=== PATIENT | female | born 1955 ===

== ENCOUNTER 2021-09-22 13:52 | Inpatient (IN) | payer MEDICARE ==
[2021-09-23 10:00] LABS: Basophils # (Auto) 0.1 K/mm3 (0.0-0.1); Basophils % (Auto) 1.4 % (0.0-1.8); Eosinophils # (Auto) 0.1 K/mm3 (0.0-0.4); Eosinophils % (Auto) 0.6 % (0.0-4.3); Hematocrit 38.9 % (30.3-42.9); Hemoglobin 13.8 gm/dl (10.1-14.3); Lymphocytes # (Auto) 2.4 K/mm3 (1.2-5.4); Lymphocytes % (Auto) 22.9 % (13.4-35.0); Mean Corpuscular HGB Conc 36 % (30-34); Mean Corpuscular Volume 92 fl (79-97); Monocytes # (Auto) 0.9 K/mm3 (0.0-0.8); Monocytes % (Auto) 8.9 % (0.0-7.3); Platelet Count 213 K/mm3 (140-440); Red Blood Count 4.24 M/mm3 (3.65-5.03); Red Cell Distribution Width 13.9 % (13.2-15.2)
[2021-09-23 10:15] LABS: Alanine Aminotransferase 48 units/L (7-56); Albumin 4.5 g/dL (3.9-5); BUN/Creatinine Ratio 16; Blood Urea Nitrogen 13 mg/dL (7-17); Calcium 9.7 mg/dL (8.4-10.2); Chol/HDL Ratio 2.73 %; HDL Cholesterol 52 mg/dL (40-59); Hemolysis Index 4; LDL Cholesterol,Direct 77 mg/dL (50-130)
--- NOTE | 2021-09-23 10:16 | History and Physical Report ---
GP History & Physical - History of Present Illness Date of admission: 09/22/21 Date of Examination: 09/23/21 Reason for Admission: Danger to self, Failure of Outpatient Treatment, Severe anxiety/depression, Unable to care for self History of Present Illness: The patient was seen today. She is a 65y/o female patient who was admitted for bizarre behavior and decrease in cognitive behavior. The patient also had not been taking any medications. The patient appears anxious. The patient is a/o x 1 and is a poor historian. She tells me she's never seen a psychiatrist and doesn't have any psychiatric disorders initially. She later says she takes seroqul and xanax for bipolar and anxiety. The patient says she came here from [facility]. She denies any illicit drug use or alcohol. She says she stopped using nicotine a few weeks ago. The patient denies SI/HI or hallucinations of any kind. PAST PSYCHIATRIC HISTORY: Diagnoses: Bipolar, anxiety Suicide attempts or Self-harm behavior: Denies Prior psychiatric hospitalizations: Denies Substance Abuse history: nicotine Previous psychiatric medications tried: seroquel, xanax Outpatient treatment: Yes PAST MEDICAL HISTORY: None reported or document Family Psychiatric History: None reported or documented SOCIAL HISTORY Marital Status: Living Arrangements: Lives with roommate Employment Status: Disabled Access to guns/weapons: Denies Education: History of Abuse: Denies Legal History: Denies REVIEW OF SYSTEMS Constitutional: Negative for weight loss ENT: Negative for stridor Respiratory: Negative for cough or hemoptysis All other systems reviewed and are negative MENTAL STATUS EXAMINATION General Appearance and Behavior: Age appropriate, good hygiene, wearing appropriate clothes. Cooperation: cooperative Psychomotor Behavior: Psychomotor normal Mood: okay Affect and affective range: congruent with stated mood Thought Process: impaired Thought Content: None Speech: Normal volume, Regular rate and rhythm, Suicidal Ideation: Denies Homicidal Ideation: Denies Hallucinations: Denies Delusions: None Impulse Control: Limited Insight and Judgment: Limited Memory: limited Attention: Attentive Orientation: alert and oriented Assessment and Plan (1)Bipolar Disorder Treatment Plan Patient admitted for inpatient psychiatric evaluation, medication adjustment and close monitoring The patient's behavior, mood, sleep and appetite will be closely monitored. Patient enrolled in individual and group therapeutic sessions and encouraged to attend. Patient provided with a safe and structured environment. Patient's physical health needs will be addressed by the Hospitalist. Hospitalist Consulted Labs including CBC, CMP, Lipid profile and Hemoglobin A1C levels ordered for baseline reference Social Assessment will be completed and the [employer] will work with patient and family to ensure a suitable and safe disposition Medication adjustment will be made as clinically indicated Restarted home medications Usual Wellness Religious/Preservation: - Start Trazodone 50 mg po QHS & 50 mg po QHS PRN between 10 PM & 2 AM for insomnia - Start Melatonin 5 mg po QHS to promote circadian rhythm The patient agreed on the treatment plan, understood the risk, benefit, alternative treatment, potential consequence of no treatment, and gave informed consent. Estimated days: 7 Post hospital care: primary care provider, psychiatric provider Case staffed with Dr. Cruz Legal Status: Voluntary Reaction to Hospitalization: Accepting Medications and Allergies Allergies Allergy/AdvReac Type Severity Reaction Status Date / Time pollen extracts Allergy Unknown Verified 09/23/21 05:22 Home Medications Medication Instructions Recorded Confirmed Last Taken Type ARIPiprazole [Abilify] 10 mg PO DAILY 09/22/21 09/22/21 Unknown History atenoloL [Tenormin] 50 mg PO DAILY 09/22/21 09/22/21 Unknown History levETIRAcetam [Keppra TAB] 500 mg PO BID 09/22/21 09/22/21 Unknown History ALPRAZolam [Xanax TAB] 1 mg PO BID 09/23/21 09/23/21 Unknown History ARIPiprazole [Abilify TAB] 10 mg PO DAILY 09/23/21 09/23/21 Unknown History Cefdinir 1 mg PO Q12HR 09/23/21 09/23/21 Unknown History Melatonin 5 mg PO HS PRN MDD 1 tab 09/23/21 09/23/21 Unknown History Protonix TAB 40 mg PO DAILY 09/23/21 09/23/21 Unknown History diphenhydrAMINE 0.5 ampul IM BID PRN 09/23/21 09/23/21 Unknown History Results - Results Labs/Vitals: Laboratory Last Values WBC 10.6 K/mm3 (4.5-11.0) 09/23/21 09:27 RBC 4.24 M/mm3 (3.65-5.03) 09/23/21 09:27 Hgb 13.8 gm/dl (10.1-14.3) 09/23/21 09:27 Hct 38.9 % (30.3-42.9) 09/23/21 09: MCV 92 fl (79-97) 09/23/21 09: MCH 33 pg (28-32) H 09/23/21 09: MCHC 36 % (30-34) H 09/23/21 09: RDW 13.9 % (13.2-15.2) 09/23/21 09: Plt Count 213 K/mm3 (140-440) 09/23/21 09:27 Lymph % (Auto) 22.9 % (13.4-35.0) 09/23/21 09: [place] % (Auto) 8.9 % (0.0-7.3) H 09/23/21 09: Eos % (Auto) 0.6 % (0.0-4.3) 09/23/21 09: Baso % (Auto) 1.4 % (0.0-1.8) 09/23/21 09: Lymph # (Auto) 2.4 K/mm3 (1.2-5.4) 09/23/21 09:27 [place] # (Auto) 0.9 K/mm3 (0.0-0.8) H 09/23/21 09:27 Eos # (Auto) 0.1 K/mm3 (0.0-0.4) 09/23/21 09:27 Baso # (Auto) 0.1 K/mm3 (0.0-0.1) 09/23/21 09: Seg Neutrophils % 66.2 % (40.0-70.0) 09/23/21 09: Seg Neutrophils # 7.1 K/mm3 (1.8-7.7) 09/23/21 09:27 Sodium 131 mmol/L (137-145) L 09/23/21 09:27 Potassium 4.2 mmol/L (3.6-5.0) 09/23/21 09:27 Chloride 93.4 mmol/L (98-107) L 09/23/21 09:27 Carbon Dioxide 23 mmol/L (22-30) 09/23/21 09:27 Anion Gap 19 mmol/L 09/23/21 09:27 BUN 13 mg/dL (7-17) 11/06/21 09:27 Creatinine 0.8 mg/dL (0.6-1.2) 09/23/21 09:27 Estimated GFR > 60 ml/min 09/23/21 09:27 BUN/Creatinine Ratio 16 % 09/23/21 09:27 Glucose 172 mg/dL (65-100) H 09/23/21 09:27 Hemoglobin A1c 5.2 % (4-6) 09/23/21 09:27 Calcium 9.7 mg/dL (8.4-10.2) 09/23/21 09:27 Total Bilirubin 0.70 mg/dL (0.1-1.2) 09/23/21 09:27 AST 61 units/L (5-40) H 09/23/21 09:27 ALT 48 units/L (7-56) 09/23/21 09:27 Alkaline Phosphatase 69 units/L (35-129) 09/23/21 09:27 Total Protein 8.2 g/dL (6.3-8.2) 09/23/21 09:27 Albumin 4.5 g/dL (3.9-5) 09/23/21 09:27 Albumin/Globulin Ratio 1.2 % 09/23/21 09:27 Triglycerides 66 mg/dL (2-149) 09/23/21 09:27 Cholesterol 142 mg/dL (50-199) 09/23/21 09:27 LDL Cholesterol Direct 77 mg/dL (50-130) 09/23/21 09:27 HDL Cholesterol 52 mg/dL (40-59) 09/23/21 09:27 Cholesterol/HDL Ratio 2.73 % 09/23/21 09:27 Last Vital Signs Temp 99.0 F 09/22/21 22:47 Pulse 78 09/22/21 22:47 Resp 18 09/22/21 22:47 BP 125/60 09/22/21 22:47 Pulse Ox 96 09/22/21 22:47 Physical Examination - Constitutional Vitals: Vital Signs Temp Pulse Resp BP Pulse Ox 99.0 F 78 18 125/60 96 09/22/21 22:47 09/22/21 22:47 09/22/21 22:47 09/22/21 22:47 09/22/21 22:47 Temperature -Last 24 Hours Temperature 99.0 F Mental Status Exam - Vital signs Last Vital Signs Temp 99.0 F 09/22/21 22:47 Pulse 78 09/22/21 22:47 Resp 18 09/22/21 22:47 BP 125/60 09/22/21 22:47 Pulse Ox 96 09/22/21 22:47 Physician Certification - Certification Statement Physician Certification Statement: This is an acknowledgement statement that KARLI PAGE is a 65 year old F who requires inpatient psychiatric admission for treatment which could reasonably be expected to improve the patient's condition for Estimated period of time patient will need to remain in the hospital: [ ] Plan for post-hospital care: [ ]
[2021-09-23] MEDS ORDERED: NON-FORMULARY EACH (Melatonin 5 MG) PO PRN (10:22)
[2021-09-23] MEDS ORDERED: DIPHENHYDRAMINE IM PRN (10:22)
[2021-09-23] MEDS ORDERED: PROTONIX 40 MG PO SCH (10:30)
[2021-09-23] MEDS ORDERED: NON-FORMULARY EACH (Cefdinir [Cefdinir] 300 MG Capsule) PO SCH (10:30)
[2021-09-23] MEDS ORDERED: NON-FORMULARY EACH (Alprazolam [Xanax Tab] 2 MG Tablet) PO SCH (10:30)
[2021-09-23] MEDS ORDERED: MELATONIN 5 MG TAB PO PRN (10:44)
--- NOTE | 2021-09-23 10:53 | Consultation ---
Medications and Allergies Allergies Allergy/AdvReac Type Severity Reaction Status Date / Time pollen extracts Allergy Unknown Verified 09/23/21 05:22 Home Medications Medication Instructions Recorded Confirmed Last Taken Type ARIPiprazole [Abilify] 10 mg PO DAILY 09/22/21 09/22/21 Unknown History atenoloL [Tenormin] 50 mg PO DAILY 09/22/21 09/22/21 Unknown History levETIRAcetam [Keppra TAB] 500 mg PO BID 09/22/21 09/22/21 Unknown History ALPRAZolam [Xanax TAB] 1 mg PO BID 09/23/21 09/23/21 Unknown History ARIPiprazole [Abilify TAB] 10 mg PO DAILY 09/23/21 09/23/21 Unknown History Cefdinir 1 mg PO Q12HR 09/23/21 09/23/21 Unknown History Melatonin 5 mg PO HS PRN MDD 1 tab 09/23/21 09/23/21 Unknown History Protonix TAB 40 mg PO DAILY 09/23/21 09/23/21 Unknown History diphenhydrAMINE 0.5 ampul IM BID PRN 09/23/21 09/23/21 Unknown History Active Meds: Active Medications Alprazolam (Alprazolam 1 Mg Tab) [address] [facility] Aripiprazole (Aripiprazole 10 Mg Tab) [address] [facility] Atenolol (Atenolol 50 Mg Tab) [address] [facility] Levetiracetam (Levetiracetam 500 Mg Tab) [address] [facility] Melatonin (Melatonin 5 Mg Tab) 5 mg PO HS PRN PRN Reason: Insomnia Miscellaneous Medication (Diphenhydramine) 0.5 ampul IM BID PRN PRN Reason: Agitation Miscellaneous Medication (Cefdinir [Cefdinir]) [address] [facility] Pantoprazole Sodium (Pantoprazole 40 Mg Tab) [address] [facility] Exam - Constitutional Vitals: Temp Pulse Resp BP Pulse Ox 99.0 F 78 18 125/60 96 09/22/21 22:47 09/22/21 22:47 09/22/21 22:47 09/22/21 22:47 09/22/21 22:47 Results - Labs CBC & Chem 7: 09/23/21 09:27 09/23/21 09:27 Labs: Abnormal lab results 09/23/21 09/23/21 Range/Units 09:27 09:27 MCH 33 H (28-32) pg MCHC 36 H (30-34) % [place] % (Auto) 8.9 H (0.0-7.3) % [place] # (Auto) 0.9 H (0.0-0.8) K/mm3 Sodium 131 L (137-145) mmol/L Chloride 93.4 L (98-107) mmol/L Glucose 172 H (65-100) mg/dL AST 61 H (5-40) units/L
[2021-09-23] MEDS: ARIPiprazole 10 MG TAB PO SCH (12:23)
[2021-09-23] MEDS: PANTOPRAZOLE 40 MG TAB PO SCH (12:23)
[2021-09-23] MEDS: ALPRAZolam 1 MG TAB PO SCH ×2 (12:23→21:00)
[2021-09-23] MEDS: levETIRAcetam 500 MG TAB PO SCH ×2 (12:23→21:00)
[2021-09-23] MEDS: atenoloL 50 MG TAB PO SCH (20:13)
[2021-09-24] MEDS: levETIRAcetam 500 MG TAB PO SCH ×2 (09:42→21:22)
[2021-09-24] MEDS: ALPRAZolam 1 MG TAB PO SCH ×2 (09:42→21:22)
[2021-09-24] MEDS: atenoloL 50 MG TAB PO SCH (09:42)
[2021-09-24] MEDS: PANTOPRAZOLE 40 MG TAB PO SCH (09:42)
[2021-09-24] MEDS ORDERED: ARIPiprazole 10 MG TAB PO SCH (10:00)
[2021-09-24] MEDS: ARIPiprazole 10 MG TAB PO SCH (10:23)
--- NOTE | 2021-09-24 11:43 | Progress Note ---
Subjective Date of service: 09/24/21 Principal diagnosis: Bipolar Disorder Subjective Comment: The patient was seen today. She says it's been a tough morning because she did not sleep. The patient says "I have insomnia." She denies SI/HI or hallucinations of any kind. Nursing note states the patient was hiding medications in cup. REVIEW OF SYSTEMS Constitutional: Negative for weight loss ENT: Negative for stridor Respiratory: Negative for cough or hemoptysis All other systems reviewed and are negative MENTAL STATUS EXAMINATION General Appearance and Behavior: Age appropriate, good hygiene, wearing appropriate clothes. Cooperation: cooperative Psychomotor Behavior: Psychomotor normal Mood: okay Affect and affective range: congruent with stated mood Thought Process: impaired Thought Content: None Speech: Normal volume, Regular rate and rhythm, Suicidal Ideation: Denies Homicidal Ideation: Denies Hallucinations: Denies Delusions: None Impulse Control: Limited Insight and Judgment: Limited Memory: limited Attention: Attentive Orientation: alert and oriented Assessment and Plan (1)Bipolar Disorder Treatment Plan Patient admitted for inpatient psychiatric evaluation, medication adjustment and close monitoring The patient's behavior, mood, sleep and appetite will be closely monitored. Patient enrolled in individual and group therapeutic sessions and encouraged to attend. Patient provided with a safe and structured environment. Patient's physical health needs will be addressed by the Hospitalist. Hospitalist Consulted Labs including CBC, CMP, Lipid profile and Hemoglobin A1C levels ordered for baseline reference Social Assessment will be completed and the [employer] will work with patient and family to ensure a suitable and safe disposition Medication adjustment will be made as clinically indicated Increased Trazodone 50mg po qhs Usual Wellness Baptism/Preservation: - Start Trazodone 50 mg po QHS & 50 mg po QHS PRN between 10 PM & 2 AM for insomnia - Start Melatonin 5 mg po QHS to promote circadian rhythm The patient agreed on the treatment plan, understood the risk, benefit, alternative treatment, potential consequence of no treatment, and gave informed consent. Estimated days: 7 Post hospital care: primary care provider, psychiatric provider Case staffed with Dr. Cruz Medications and Allergies Allergies Allergy/AdvReac Type Severity Reaction Status Date / Time pollen extracts Allergy Unknown Verified 09/23/21 05:22 Home Medications Medication Instructions Recorded Confirmed Last Taken Type ARIPiprazole [Abilify] 10 mg PO DAILY 09/22/21 09/22/21 Unknown History atenoloL [Tenormin] 50 mg PO DAILY 09/22/21 09/22/21 Unknown History levETIRAcetam [Keppra TAB] 500 mg PO BID 09/22/21 09/22/21 Unknown History ALPRAZolam [Xanax TAB] 1 mg PO BID 09/23/21 09/23/21 Unknown History ARIPiprazole [Abilify TAB] 10 mg PO DAILY 09/23/21 09/23/21 Unknown History Cefdinir 1 cap PO Q12HR 09/23/21 09/23/21 Unknown History Melatonin 5 mg PO HS PRN MDD 1 tab 09/23/21 09/23/21 Unknown History Protonix TAB 40 mg PO DAILY 09/23/21 09/23/21 Unknown History diphenhydrAMINE 0.5 ampul IM BID PRN 09/23/21 09/23/21 Unknown History Active Meds: Active Medications Alprazolam (Alprazolam 1 Mg Tab) 2 mg PO BID [facility] Last Admin: 09/24/21 09:42 Dose: 2 mg Documented by: Aripiprazole (Aripiprazole 10 Mg Tab) 10 mg PO DAILY [facility] Last Admin: 09/24/21 10:23 Dose: 10 mg Documented by: Atenolol (Atenolol 50 Mg Tab) 50 mg PO DAILY [facility] Last Admin: 09/24/21 09:42 Dose: 50 mg Documented by: Levetiracetam (Levetiracetam 500 Mg Tab) 500 mg PO BID [facility] Last Admin: 09/24/21 09:42 Dose: 500 mg Documented by: Melatonin (Melatonin 5 Mg Tab) 5 mg PO HS PRN PRN Reason: Insomnia Miscellaneous Medication (Cefdinir [Cefdinir]) 1 mg PO Q12HR [facility] Pantoprazole Sodium (Pantoprazole 40 Mg Tab) 40 mg PO DAILY [facility] Last Admin: 09/24/21 09:42 Dose: 40 mg Documented by: Results - Results Labs/Vitals: Laboratory Last Values WBC 10.6 K/mm3 (4.5-11.0) 09/23/21 09:27 RBC 4.24 M/mm3 (3.65-5.03) 09/23/21 09:27 Hgb 13.8 gm/dl (10.1-14.3) 09/23/21 09:27 Hct 38.9 % (30.3-42.9) 09/23/21 09: MCV 92 fl (79-97) 09/23/21 09: MCH 33 pg (28-32) H 09/23/21 09: MCHC 36 % (30-34) H 09/23/21 09: RDW 13.9 % (13.2-15.2) 09/23/21 09: Plt Count 213 K/mm3 (140-440) 09/23/21 09: Lymph % (Auto) 22.9 % (13.4-35.0) 09/23/21 09: [place] % (Auto) 8.9 % (0.0-7.3) H 09/23/21 09: Eos % (Auto) 0.6 % (0.0-4.3) 09/23/21 09: Baso % (Auto) 1.4 % (0.0-1.8) 09/23/21 09: Lymph # (Auto) 2.4 K/mm3 (1.2-5.4) 09/23/21 09: [place] # (Auto) 0.9 K/mm3 (0.0-0.8) H 09/23/21 09: Eos # (Auto) 0.1 K/mm3 (0.0-0.4) 09/23/21 09: Baso # (Auto) 0.1 K/mm3 (0.0-0.1) 09/23/21 09: Seg Neutrophils % 66.2 % (40.0-70.0) 09/23/21 09: Seg Neutrophils # 7.1 K/mm3 (1.8-7.7) 09/23/21 09:27 Sodium 131 mmol/L (137-145) L 09/23/21 09: Potassium 4.2 mmol/L (3.6-5.0) 09/23/21 09: Chloride 93.4 mmol/L (98-107) L 09/23/21 09: Carbon Dioxide 23 mmol/L (22-30) 09/23/21 09: Anion Gap 19 mmol/L 09/23/21 09: BUN 13 mg/dL (7-17) 09/23/21 09: Creatinine 0.8 mg/dL (0.6-1.2) 09/23/21 09: Estimated GFR > 60 ml/min 09/23/21 09: BUN/Creatinine Ratio 16 % 09/23/21 09: Glucose 172 mg/dL (65-100) H 09/23/21 09:27 Hemoglobin A1c 5.2 % (4-6) 09/23/21 09: Calcium 9.7 mg/dL (8.4-10.2) 09/23/21 09: Total Bilirubin 0.70 mg/dL (0.1-1.2) 09/23/21: AST 61 units/L (5-40) H 09/23/21: ALT 48 units/L (7-56) 09/23/21: Alkaline Phosphatase 69 units/L (35-129) 09/23/21 09: Total Protein 8.2 g/dL (6.3-8.2) 09/23/21: Albumin 4.5 g/dL (3.9-5) 09/23/21 09: Albumin/Globulin Ratio 1.2 % 09/23/21 09:27 Triglycerides 66 mg/dL (2-149) 09/23/21 09: Cholesterol 142 mg/dL (50-199) 09/23/21 09: LDL Cholesterol Direct 77 mg/dL (50-130) 09/23/21 09: HDL Cholesterol 52 mg/dL (40-59) 09/23/21 09: Cholesterol/HDL Ratio 2.73 % 09/23/21 09: TSH 1.940 mlU/mL (0.270-4.200) 09/23/21 09:27 Last Vital Signs Temp 98.5 F 09/24/21 08:30 Pulse 92 H 09/24/21 09:42 Resp 16 09/24/21 08:30 BP 121/65 09/24/21 09:42 Pulse Ox 97 09/24/21 08:30
[2021-09-24] MEDS ORDERED: CEFDINIR 300 MG PO SCH (12:05)
[2021-09-24] MEDS ORDERED: ACETAMINOPHEN 325 MG TAB PO PRN (13:18)
--- NOTE | 2021-09-24 13:23 | Consultation ---
History of Present Illness - Reason for Consult Consult date: 09/24/21 Medical management - History of Present Illness Patient is a 62-year-old female with past medical history of hypertension, GERD, tension headaches, and bilateral knee osteoarthritis who presented with "bizarre behavior" requiring psychiatric evaluation at [facility]. The patient endorses being calm and "being levelheaded". Patient is quite pleasant and very conversant when asked questions. The patient endorses being treated with cefdinir for UTI, and completing the antibiotic course. Internal medicine was consulted for medical management of nonpsychiatric conditions. Past History Past Medical History: arthritis (Bilateral kneesosteoarthritis), GERD, hypertension, other (Tension headache; constipation) Past Surgical History: Other (Surgical resection of left ovarian cyst) Social history: other (Lives with friends) Family history: cancer (Colon cancermother) Medications and Allergies Allergies Allergy/AdvReac Type Severity Reaction Status Date / Time pollen extracts Allergy Unknown Verified 09/23/21 05:22 Home Medications Medication Instructions Recorded Confirmed Last Taken Type ARIPiprazole [Abilify] 10 mg PO DAILY 09/22/21 09/22/21 Unknown History atenoloL [Tenormin] 50 mg PO DAILY 09/22/21 09/22/21 Unknown History levETIRAcetam [Keppra TAB] 500 mg PO BID 09/22/21 09/22/21 Unknown History ALPRAZolam [Xanax TAB] 1 mg PO BID 09/23/21 09/23/21 Unknown History ARIPiprazole [Abilify TAB] 10 mg PO DAILY 09/23/21 09/23/21 Unknown History Cefdinir 1 cap PO Q12HR 09/23/21 09/23/21 Unknown History Melatonin 5 mg PO HS PRN MDD 1 tab 09/23/21 09/23/21 Unknown History Protonix TAB 40 mg PO DAILY 09/23/21 09/23/21 Unknown History diphenhydrAMINE 0.5 ampul IM BID PRN 09/23/21 09/23/21 Unknown History Active Meds: Active Medications Alprazolam (Alprazolam 1 Mg Tab) 2 mg PO BID [facility] Last Admin: 09/24/21 09:42 Dose: 2 mg Documented by: Aripiprazole (Aripiprazole 10 Mg Tab) 10 mg PO DAILY [facility] Last Admin: 09/24/21 10:23 Dose: 10 mg Documented by: Levetiracetam (Levetiracetam 500 Mg Tab) 500 mg PO BID [facility] Last Admin: 09/24/21 09:42 Dose: 500 mg Documented by: Melatonin (Melatonin 5 Mg Tab) 5 mg PO HS PRN PRN Reason: Insomnia Pantoprazole Sodium (Pantoprazole 40 Mg Tab) 40 mg PO DAILY [facility] Last Admin: 09/24/21 09:42 Dose: 40 mg Documented by: Trazodone HCl (Trazodone 50 Mg Tab) 50 mg PO QHS [facility] Review of Systems All systems: negative Gastrointestinal: constipation, heartburn Exam - Constitutional Vitals: Temp Pulse Resp BP Pulse Ox 98.5 F 92 H 16 121/65 97 09/24/21 08:30 09/24/21 09:42 09/24/21 08:30 09/24/21 09:42 09/24/21 08:30 General appearance: Present: no acute distress, well-nourished - EENT Eyes: Present: PERRL, EOM intact ENT: hearing intact, clear oral mucosa, dentition normal - Neck Neck: Present: supple, normal ROM - Respiratory Respiratory effort: normal Respiratory: bilateral: diminished - Cardiovascular Rhythm: regular Heart Sounds: Present: S1 & S2 - Extremities Extremities: no ischemia, pulses intact, pulses symmetrical, normal temperature, normal color Extremity abnormal: edema (Trace bilateral edema to [place]) Peripheral Pulses: within normal limits - Abdominal General gastrointestinal: Present: soft, non-tender, non-distended, normal bowel sounds Female genitourinary: Present: deferred - Rectal Rectal Exam: deferred - Integumentary Integumentary: Present: clear, warm, dry - Musculoskeletal Musculoskeletal: strength equal bilaterally - Psychiatric Psychiatric: appropriate mood/affect, intact judgment & insight, memory intact, cooperative - Neurologic Neurologic: CNII-XII intact, moves all extremities - Allied Health Allied health notes reviewed: nursing Results - Labs CBC & Chem 7: 09/23/21 09:27 09/23/21 09:27 Assessment and Plan Patient is a 62-year-old female with past medical history of hypertension, GERD, tension headaches, and bilateral knee osteoarthritis who presented with "bizarre behavior" requiring psychiatric evaluation at [facility]. Internal medicine was consulted for medical management. #Bipolar disorder #Bizarre behavior -Management per primary #Hypertension -Discontinuing atenolol 50 mg daily. Starting amlodipine 5 mg daily. -Continue to monitor #UTI/cystitis -Patient endorses completing antibiotic course prior to hospitalization. Discontinuing cefdinir. -Low threshold for ordering urinalysis if patient becomes febrile, tachycardic, or patient expresses dysuria or frequency. #GERD -Continue p.o. Protonix 40 mg daily. Continue to monitor. #Constipation -Starting MiraLAX daily. #Hyperglycemia -Hemoglobin A1c 5.2 -Blood glucose goal [id number] while inpatient. Continue to monitor. Thank you for this interesting consult. We will continue to follow.
[2021-09-24] MEDS: POLYETHYLENE GLYCOL 3350 17 GM POWDER PO SCH (16:30)
[2021-09-24] MEDS: traZODone 50 MG TAB PO SCH (21:22)
[2021-09-25] MEDS: PANTOPRAZOLE 40 MG TAB PO SCH (09:22)
[2021-09-25] MEDS: ARIPiprazole 10 MG TAB PO SCH (09:22)
[2021-09-25] MEDS: ALPRAZolam 1 MG TAB PO SCH ×2 (09:22→21:11)
[2021-09-25] MEDS: amLODIPine 5 MG TAB PO SCH (09:22)
[2021-09-25] MEDS: levETIRAcetam 500 MG TAB PO SCH ×2 (09:22→21:10)
--- NOTE | 2021-09-25 10:30 | Progress Note ---
Subjective Date of service: 09/25/21 Principal diagnosis: Bipolar Disorder Subjective Comment: The patient was seen today. She says she is doing fine. She says "not yet" when asking was she SI/HI. She then laughs. The patient also denies hallucinations of any kind. But staff states she has been responding to internal stimuli and walking around holding her hair up in one spot. REVIEW OF SYSTEMS Constitutional: Negative for weight loss ENT: Negative for stridor Respiratory: Negative for cough or hemoptysis All other systems reviewed and are negative MENTAL STATUS EXAMINATION General Appearance and Behavior: Age appropriate, good hygiene, wearing appropriate clothes. Cooperation: cooperative Psychomotor Behavior: Psychomotor normal Mood: okay Affect and affective range: congruent with stated mood Thought Process: impaired Thought Content: None Speech: Normal volume, Regular rate and rhythm, Suicidal Ideation: Denies Homicidal Ideation: Denies Hallucinations: Denies Delusions: None Impulse Control: Limited Insight and Judgment: Limited Memory: limited Attention: Attentive Orientation: alert and oriented Assessment and Plan (1)Bipolar Disorder Treatment Plan Patient admitted for inpatient psychiatric evaluation, medication adjustment and close monitoring The patient's behavior, mood, sleep and appetite will be closely monitored. Patient enrolled in individual and group therapeutic sessions and encouraged to attend. Patient provided with a safe and structured environment. Patient's physical health needs will be addressed by the Hospitalist. Hospitalist Consulted Labs including CBC, CMP, Lipid profile and Hemoglobin A1C levels ordered for baseline reference Social Assessment will be completed and the Animal Caretaker Supervisor will work with patient and family to ensure a suitable and safe disposition Medication adjustment will be made as clinically indicated Increase Abilify 15mg po daily Usual Wellness Sikhism/Preservation: - Start Trazodone 50 mg po QHS & 50 mg po QHS PRN between 10 PM & 2 AM for insomnia - Start Melatonin 5 mg po QHS to promote circadian rhythm The patient agreed on the treatment plan, understood the risk, benefit, alternative treatment, potential consequence of no treatment, and gave informed consent. Estimated days: 7 Post hospital care: primary care provider, psychiatric provider Case staffed with Dr. Cruz Medications and Allergies Allergies Allergy/AdvReac Type Severity Reaction Status Date / Time pollen extracts Allergy Unknown Verified 09/23/21 05:22 Home Medications Medication Instructions Recorded Confirmed Last Taken Type ARIPiprazole [Abilify] 10 mg PO DAILY 09/22/21 09/22/21 Unknown History atenoloL [Tenormin] 50 mg PO DAILY 09/22/21 09/22/21 Unknown History levETIRAcetam [Keppra TAB] 500 mg PO BID 09/22/21 09/22/21 Unknown History ALPRAZolam [Xanax TAB] 1 mg PO BID 09/23/21 09/23/21 Unknown History ARIPiprazole [Abilify TAB] 10 mg PO DAILY 09/23/21 09/23/21 Unknown History Cefdinir 1 cap PO Q12HR 09/23/21 09/23/21 Unknown History Melatonin 5 mg PO HS PRN MDD 1 tab 09/23/21 09/23/21 Unknown History Protonix TAB 40 mg PO DAILY 09/23/21 09/23/21 Unknown History diphenhydrAMINE 0.5 ampul IM BID PRN 09/23/21 09/23/21 Unknown History Active Meds: Active Medications Acetaminophen (Acetaminophen 325 Mg Tab) 650 mg PO Q6H PRN PRN Reason: Headache Alprazolam (Alprazolam 1 Mg Tab) 2 mg PO BID [facility] Last Admin: 09/25/21 09:22 Dose: 2 mg Documented by: Amlodipine Besylate (Amlodipine 5 Mg Tab) 5 mg PO QDAY [facility] Last Admin: 09/25/21 09:22 Dose: 5 mg Documented by: Aripiprazole (Aripiprazole 10 Mg Tab) 10 mg PO DAILY [facility] Last Admin: 09/25/21 09:22 Dose: 10 mg Documented by: Levetiracetam (Levetiracetam 500 Mg Tab) 500 mg PO BID [facility] Last Admin: 09/25/21 09:22 Dose: 500 mg Documented by: Melatonin (Melatonin 5 Mg Tab) 5 mg PO HS PRN PRN Reason: Insomnia Last Admin: 09/24/21 20:56 Dose: 5 mg Documented by: Pantoprazole Sodium (Pantoprazole 40 Mg Tab) 40 mg PO DAILY [facility] Last Admin: 09/25/21 09:22 Dose: 40 mg Documented by: Polyethylene Glycol (Polyethylene Glycol 3350 17 Gm Powder) 17 gm PO QDAY [facility] Last Admin: 09/24/21 16:30 Dose: 17 gm Documented by: Trazodone HCl (Trazodone 50 Mg Tab) 50 mg PO QHS [facility] Last Admin: 09/24/21 21:22 Dose: 50 mg Documented by: Results - Results Labs/Vitals: Laboratory Last Values WBC 10.6 K/mm3 (4.5-11.0) 09/23/21 09: RBC 4.24 M/mm3 (3.65-5.03) 09/23/21 09: Hgb 13.8 gm/dl (10.1-14.3) 09/23/21: Hct 38.9 % (30.3-42.9) 09/23/21: MCV 92 fl (79-97) 09/23/21: MCH 33 pg (28-32) H 09/23/21: MCHC 36 % (30-34) H 09/23/21: RDW 13.9 % (13.2-15.2) 09/23/21: Plt Count 213 K/mm3 (140-440) 09/23/21 09: Lymph % (Auto) 22.9 % (13.4-35.0) 09/23/21: [place] % (Auto) 8.9 % (0.0-7.3) H 09/23/21: Eos % (Auto) 0.6 % (0.0-4.3) 09/23/21: Baso % (Auto) 1.4 % (0.0-1.8) 09/23/21: Lymph # (Auto) 2.4 K/mm3 (1.2-5.4) 09/23/21: [place] # (Auto) 0.9 K/mm3 (0.0-0.8) H 09/23/21: Eos # (Auto) 0.1 K/mm3 (0.0-0.4) 09/23/21: Baso # (Auto) 0.1 K/mm3 (0.0-0.1) 09/23/21: Seg Neutrophils % 66.2 % (40.0-70.0) 09/23/21: Seg Neutrophils # 7.1 K/mm3 (1.8-7.7) 09/23/21 09: Sodium 131 mmol/L (137-145) L 09/23/21:27 Potassium 4.2 mmol/L (3.6-5.0) 09/23/21 09: Chloride 93.4 mmol/L (98-107) L 09/23/21 09: Carbon Dioxide 23 mmol/L (22-30) 09/23/21 09: Anion Gap 19 mmol/L 09/23/21 09:27 BUN 13 mg/dL (7-17) 09/23/21 09: Creatinine 0.8 mg/dL (0.6-1.2) 09/23/21 09: Estimated GFR > 60 ml/min 09/23/21: BUN/Creatinine Ratio 16 % 09/23/21: Glucose 172 mg/dL (65-100) H 09/23/21 09: Hemoglobin A1c 5.2 % (4-6) 09/23/21 09: Calcium 9.7 mg/dL (8.4-10.2) 09/23/21 09: Total Bilirubin 0.70 mg/dL (0.1-1.2) 09/23/21 09: AST 61 units/L (5-40) H 09/23/21: ALT 48 units/L (7-56) 09/23/21 09: Alkaline Phosphatase 69 units/L (35-129) 09/23/21 09: Total Protein 8.2 g/dL (6.3-8.2) 09/23/21 09: Albumin 4.5 g/dL (3.9-5) 09/23/21 09: Albumin/Globulin Ratio 1.2 % 09/23/21 09: Triglycerides 66 mg/dL (2-149) 09/23/21 09: Cholesterol 142 mg/dL (50-199) 09/23/21 09: LDL Cholesterol Direct 77 mg/dL (50-130) 09/23/21: HDL Cholesterol 52 mg/dL (40-59) 09/23/21 09: Cholesterol/HDL Ratio 2.73 % 09/23/21 09: TSH 1.940 mlU/mL (0.270-4.200) 09/23/21 09:27 Last Vital Signs Temp 98.9 F 09/25/21 09:20 Pulse 77 09/25/21 09:22 Resp 18 09/25/21 09:20 BP 123/63 09/25/21 09:22 Pulse Ox 98 09/25/21 09:20
[2021-09-25] MEDS ORDERED: ARIPiprazole 5 MG TAB PO ONE (12:00)
--- NOTE | 2021-09-25 14:08 | Progress Note ---
Assessment and Plan Assessment and plan: Patient is a 62-year-old female with past medical history of hypertension, GERD, tension headaches, and bilateral knee osteoarthritis who presented with "bizarre behavior" requiring psychiatric evaluation at [facility]. Internal medicine was consulted for medical management. #Bipolar disorder #Bizarre behavior -Management per primary #Hypertension -Continue amlodipine 5 mg daily. -Continue to monitor #UTI/cystitis -Patient endorses completing antibiotic course prior to hospitalization. Discontinuing cefdinir. -Low threshold for ordering urinalysis if patient becomes febrile, tachycardic, or patient expresses dysuria or frequency. #GERD -Continue p.o. Protonix 40 mg daily. Continue to monitor. #Constipation -Continue MiraLAX daily. #Hyperglycemia -Hemoglobin A1c 5.2 -Blood glucose goal [id number] while inpatient. Continue to monitor. #Advanced care planning -Disease education conducted, care plan discussed, diagnoses discussed, prognosis discussed, and patient acknowledges understanding with care plan -Time: +15 minutes Will continue to follow. Disposition Plan: Continue medical management Total Time Spent with Patient (Minutes): 30 minutes History Interval history: No acute events over night. The patient denies fevers, chills, nausea, vomiting, abdominal pain, chest pain/pressure, shortness of breath, urinary symptoms, weakness, or confusion. Hospitalist Physical - Constitutional Vitals: Temp Pulse Resp BP Pulse Ox 98.9 F 77 18 123/63 98 09/25/21 09:20 09/25/21 09:22 09/25/21 09:20 09/25/21 09:22 09/25/21 09:20 General appearance: Present: no acute distress, well-nourished - EENT Eyes: Present: PERRL, EOM intact ENT: hearing intact, clear oral mucosa, dentition normal - Neck Neck: Present: supple, normal ROM - Respiratory Respiratory effort: normal Respiratory: bilateral: CTA - Cardiovascular Rhythm: regular Heart Sounds: Present: S1 & S2 - Extremities Extremities: no ischemia, pulses intact, pulses symmetrical, normal temperature, normal color Peripheral Pulses: within normal limits - Abdominal General gastrointestinal: soft, non-tender, non-distended, normal bowel sounds - Integumentary Integumentary: Present: clear, warm, dry - Psychiatric Psychiatric: appropriate mood/affect, intact judgment & insight, memory intact, cooperative - Neurologic Neurologic: CNII-XII intact - Allied Health Allied health notes reviewed: nursing Results - Labs CBC & Chem 7: 09/23/21 09:27 09/23/21 09: Labs: Laboratory Last Values WBC 10.6 K/mm3 (4.5-11.0) 09/23/21 09: RBC 4.24 M/mm3 (3.65-5.03) 09/23/21 09: Hgb 13.8 gm/dl (10.1-14.3) 09/23/21: Hct 38.9 % (30.3-42.9) 09/23/21: MCV 92 fl (79-97) 09/23/21: MCH 33 pg (28-32) H 09/23/21: MCHC 36 % (30-34) H 09/23/21: RDW 13.9 % (13.2-15.2) 09/23/21: Plt Count 213 K/mm3 (140-440) 09/23/21 09: Lymph % (Auto) 22.9 % (13.4-35.0) 09/23/21 09: [place] % (Auto) 8.9 % (0.0-7.3) H 09/23/21 09: Eos % (Auto) 0.6 % (0.0-4.3) 09/23/21 09: Baso % (Auto) 1.4 % (0.0-1.8) 09/23/21: Lymph # (Auto) 2.4 K/mm3 (1.2-5.4) 09/23/21: [place] # (Auto) 0.9 K/mm3 (0.0-0.8) H 09/23/21 09: Eos # (Auto) 0.1 K/mm3 (0.0-0.4) 09/23/21: Baso # (Auto) 0.1 K/mm3 (0.0-0.1) 09/23/21 09: Seg Neutrophils % 66.2 % (40.0-70.0) 09/23/21 09: Seg Neutrophils # 7.1 K/mm3 (1.8-7.7) 09/23/21 09: Sodium 131 mmol/L (137-145) L 09/23/21 09: Potassium 4.2 mmol/L (3.6-5.0) 09/23/21 09: Chloride 93.4 mmol/L (98-107) L 09/23/21 09: Carbon Dioxide 23 mmol/L (22-30) 09/23/21 09: Anion Gap 19 mmol/L 09/23/21: BUN 13 mg/dL (7-17) 09/23/21 09: Creatinine 0.8 mg/dL (0.6-1.2) 09/23/21 09: Estimated GFR > 60 ml/min 09/23/21: BUN/Creatinine Ratio 16 % 09/23/21: Glucose 172 mg/dL (65-100) H 09/23/21 09: Hemoglobin A1c 5.2 % (4-6) 09/23/21: Calcium 9.7 mg/dL (8.4-10.2) 09/23/21 09: Total Bilirubin 0.70 mg/dL (0.1-1.2) 09/23/21 09: AST 61 units/L (5-40) H 09/23/21: ALT 48 units/L (7-56) 09/23/21: Alkaline Phosphatase 69 units/L (35-129) 09/23/21 09: Total Protein 8.2 g/dL (6.3-8.2) 09/23/21: Albumin 4.5 g/dL (3.9-5) 09/23/21: Albumin/Globulin Ratio 1.2 % 09/23/21 09: Triglycerides 66 mg/dL (2-149) 09/23/21 09: Cholesterol 142 mg/dL (50-199) 09/23/21 09: LDL Cholesterol Direct 77 mg/dL (50-130) 09/23/21: HDL Cholesterol 52 mg/dL (40-59) 09/23/21: Cholesterol/HDL Ratio 2.73 % 09/23/21 09: TSH 1.940 mlU/mL (0.270-4.200) 09/23/21 09: Ruiz/IV: Voiding Method Toilet Active Medications - Current Medications Current Medications: Generic Name Dose Route Start Last Admin Trade Name Freq PRN Reason Stop Dose Admin Acetaminophen 650 mg 09/24/21 13:18 Acetaminophen 325 Mg Tab PO Q6H PRN Headache Alprazolam 2 mg 09/23/21 11:00 09/25/21 09:22 Alprazolam 1 Mg Tab PO 2 mg BID AMARIS Administration Amlodipine Besylate 5 mg 09/25/21 10:00 09/25/21 09:22 Amlodipine 5 Mg Tab PO 5 mg QDAY AMARIS Administration Aripiprazole 15 mg 09/26/21 10:00 Aripiprazole 15 Mg Tab PO QDAY AMARIS Levetiracetam 500 mg 09/23/21 11:00 09/25/21 09:22 Levetiracetam 500 Mg Tab PO 500 mg BID AMARIS Administration Melatonin 5 mg 09/23/21 10:44 09/24/21 20:56 Melatonin 5 Mg Tab PO 5 mg HS PRN Administration Insomnia Pantoprazole Sodium 40 mg 09/23/21 11:00 09/25/21 09:22 Pantoprazole 40 Mg Tab PO 40 mg DAILY AMARIS Administration Polyethylene Glycol 17 gm 09/24/21 15:00 09/24/21 16:30 Polyethylene Glycol 3350 17 Gm Powder PO 17 gm QDAY AMARIS Administration Trazodone HCl 50 mg 09/24/21 22:00 09/24/21 21:22 Trazodone 50 Mg Tab PO 50 mg QHS AMARIS Administration
[2021-09-25] MEDS: POLYETHYLENE GLYCOL 3350 17 GM POWDER PO SCH (16:22)
[2021-09-25] MEDS: traZODone 50 MG TAB PO SCH (21:10)
[2021-09-26] MEDS: ALPRAZolam 1 MG TAB PO SCH ×2 (09:30→21:20)
[2021-09-26] MEDS: amLODIPine 5 MG TAB PO SCH (09:34)
[2021-09-26] MEDS: POLYETHYLENE GLYCOL 3350 17 GM POWDER PO SCH (09:34)
[2021-09-26] MEDS: ARIPiprazole 15 MG TAB PO SCH (09:34)
[2021-09-26] MEDS: levETIRAcetam 500 MG TAB PO SCH ×2 (09:34→21:20)
[2021-09-26] MEDS: PANTOPRAZOLE 40 MG TAB PO SCH (09:34)
--- NOTE | 2021-09-26 09:43 | Progress Note ---
Subjective Date of service: 09/26/21 Principal diagnosis: Bipolar Disorder Subjective Comment: The patient was seen today. She is sitting in the dayroom, calm, and cooperative. She says she's doing fine. She denies SI/HI or hallucinations of any kind. Staff does report that the patient needs redirection, appears confused at times and at times appears to be responding to internal stimuli. REVIEW OF SYSTEMS Constitutional: Negative for weight loss ENT: Negative for stridor Respiratory: Negative for cough or hemoptysis All other systems reviewed and are negative MENTAL STATUS EXAMINATION General Appearance and Behavior: Age appropriate, good hygiene, wearing appropriate clothes. Cooperation: cooperative Psychomotor Behavior: Psychomotor normal Mood: okay Affect and affective range: congruent with stated mood Thought Process: impaired Thought Content: None Speech: Normal volume, Regular rate and rhythm, Suicidal Ideation: Denies Homicidal Ideation: Denies Hallucinations: Denies Delusions: None Impulse Control: Limited Insight and Judgment: Limited Memory: limited Attention: Attentive Orientation: alert and oriented Assessment and Plan (1)Bipolar Disorder Treatment Plan Patient admitted for inpatient psychiatric evaluation, medication adjustment and close monitoring The patient's behavior, mood, sleep and appetite will be closely monitored. Patient enrolled in individual and group therapeutic sessions and encouraged to attend. Patient provided with a safe and structured environment. Patient's physical health needs will be addressed by the Hospitalist. Hospitalist Consulted Labs including CBC, CMP, Lipid profile and Hemoglobin A1C levels ordered for baseline reference Social Assessment will be completed and the Park Ranger will work with patient and family to ensure a suitable and safe disposition Medication adjustment will be made as clinically indicated Increase Abilify 15mg po daily yesterday No changes made today Usual Wellness Moravian/Preservation: - Start Trazodone 50 mg po QHS & 50 mg po QHS PRN between 10 PM & 2 AM for insomnia - Start Melatonin 5 mg po QHS to promote circadian rhythm The patient agreed on the treatment plan, understood the risk, benefit, alternative treatment, potential consequence of no treatment, and gave informed consent. Estimated days: 7 Post hospital care: primary care provider, psychiatric provider Case staffed with Dr. Cruz Medications and Allergies Allergies Allergy/AdvReac Type Severity Reaction Status Date / Time pollen extracts Allergy Unknown Verified 09/23/21 05:22 Home Medications Medication Instructions Recorded Confirmed Last Taken Type ARIPiprazole [Abilify] 10 mg PO DAILY 09/22/21 09/22/21 Unknown History atenoloL [Tenormin] 50 mg PO DAILY 09/22/21 09/22/21 Unknown History levETIRAcetam [Keppra TAB] 500 mg PO BID 09/22/21 09/22/21 Unknown History ALPRAZolam [Xanax TAB] 1 mg PO BID 09/23/21 09/23/21 Unknown History ARIPiprazole [Abilify TAB] 10 mg PO DAILY 09/23/21 09/23/21 Unknown History Cefdinir 1 cap PO Q12HR 09/23/21 09/23/21 Unknown History Melatonin 5 mg PO HS PRN MDD 1 tab 09/23/21 09/23/21 Unknown History Protonix TAB 40 mg PO DAILY 09/23/21 09/23/21 Unknown History diphenhydrAMINE 0.5 ampul IM BID PRN 09/23/21 09/23/21 Unknown History Active Meds: Active Medications Acetaminophen (Acetaminophen 325 Mg Tab) 650 mg PO Q6H PRN PRN Reason: Headache Alprazolam (Alprazolam 1 Mg Tab) 2 mg PO BID [facility] Last Admin: 09/26/21 09:30 Dose: 2 mg Documented by: Amlodipine Besylate (Amlodipine 5 Mg Tab) 5 mg PO QDAY [facility] Last Admin: 09/26/21 09:34 Dose: 5 mg Documented by: Aripiprazole (Aripiprazole 15 Mg Tab) 15 mg PO QDAY [facility] Last Admin: 09/26/21 09:34 Dose: 15 mg Documented by: Levetiracetam (Levetiracetam 500 Mg Tab) 500 mg PO BID [facility] Last Admin: 09/26/21 09:34 Dose: 500 mg Documented by: Melatonin (Melatonin 5 Mg Tab) 5 mg PO HS PRN PRN Reason: Insomnia Last Admin: 09/24/21 20:56 Dose: 5 mg Documented by: Pantoprazole Sodium (Pantoprazole 40 Mg Tab) 40 mg PO DAILY [facility] Last Admin: 09/26/21 09:34 Dose: 40 mg Documented by: Polyethylene Glycol (Polyethylene Glycol 3350 17 Gm Powder) 17 gm PO QDAY [facility] Last Admin: 09/26/21 09:34 Dose: 17 gm Documented by: Trazodone HCl (Trazodone 50 Mg Tab) 50 mg PO QHS [facility] Last Admin: 09/25/21 21:10 Dose: 50 mg Documented by: Results - Results Labs/Vitals: Laboratory Last Values WBC 10.6 K/mm3 (4.5-11.0) 09/23/21 09: RBC 4.24 M/mm3 (3.65-5.03) 09/23/21 09: Hgb 13.8 gm/dl (10.1-14.3) 09/23/21 09: Hct 38.9 % (30.3-42.9) 09/23/21 09: MCV 92 fl (79-97) 09/23/21 09: MCH 33 pg (28-32) H 09/23/21 09: MCHC 36 % (30-34) H 09/23/21: RDW 13.9 % (13.2-15.2) 09/23/21 09: Plt Count 213 K/mm3 (140-440) 09/23/21 09: Lymph % (Auto) 22.9 % (13.4-35.0) 09/23/21 09: [place] % (Auto) 8.9 % (0.0-7.3) H 09/23/21 09: Eos % (Auto) 0.6 % (0.0-4.3) 09/23/21: Baso % (Auto) 1.4 % (0.0-1.8) 09/23/21 09: Lymph # (Auto) 2.4 K/mm3 (1.2-5.4) 09/23/21 09: [place] # (Auto) 0.9 K/mm3 (0.0-0.8) H 09/23/21 09:27 Eos # (Auto) 0.1 K/mm3 (0.0-0.4) 09/23/21 09: Baso # (Auto) 0.1 K/mm3 (0.0-0.1) 09/23/21 09: Seg Neutrophils % 66.2 % (40.0-70.0) 09/23/21 09: Seg Neutrophils # 7.1 K/mm3 (1.8-7.7) 09/23/21 09: Sodium 131 mmol/L (137-145) L 09/23/21 09:27 Potassium 4.2 mmol/L (3.6-5.0) 09/23/21 09:27 Chloride 93.4 mmol/L (98-107) L 09/23/21 09:27 Carbon Dioxide 23 mmol/L (22-30) 09/23/21 09:27 Anion Gap 19 mmol/L 09/23/21 09:27 BUN 13 mg/dL (7-17) 09/23/21 09:27 Creatinine 0.8 mg/dL (0.6-1.2) 09/23/21 09:27 Estimated GFR > 60 ml/min 09/23/21 09:27 BUN/Creatinine Ratio 16 % 09/23/21 09:27 Glucose 172 mg/dL (65-100) H 09/23/21 09:27 Hemoglobin A1c 5.2 % (4-6) 09/23/21 09:27 Calcium 9.7 mg/dL (8.4-10.2) 09/23/21 09:27 Total Bilirubin 0.70 mg/dL (0.1-1.2) 09/23/21 09:27 AST 61 units/L (5-40) H 09/23/21 09:27 ALT 48 units/L (7-56) 09/23/21 09:27 Alkaline Phosphatase 69 units/L (35-129) 09/23/21 09:27 Total Protein 8.2 g/dL (6.3-8.2) 09/23/21 09:27 Albumin 4.5 g/dL (3.9-5) 09/23/21 09:27 Albumin/Globulin Ratio 1.2 % 09/23/21 09:27 Triglycerides 66 mg/dL (2-149) 09/23/21 09:27 Cholesterol 142 mg/dL (50-199) 09/23/21 09:27 LDL Cholesterol Direct 77 mg/dL (50-130) 09/23/21 09:27 HDL Cholesterol 52 mg/dL (40-59) 09/23/21 09:27 Cholesterol/HDL Ratio 2.73 % 09/23/21 09:27 TSH 1.940 mlU/mL (0.270-4.200) 09/23/21 09:27 Last Vital Signs Temp 98.5 F 09/26/21 07:32 Pulse 74 09/26/21 09:34 Resp 16 09/26/21 07:32 BP 117/66 09/26/21 09:34 Pulse Ox 97 09/26/21 07:32
--- NOTE | 2021-09-26 10:43 | Progress Note ---
Hospitalist Physical - Constitutional Vitals: Temp Pulse Resp BP Pulse Ox 98.5 F 74 16 117/66 97 09/26/21 07:32 09/26/21 09:34 09/26/21 07:32 09/26/21 09:34 09/26/21 07:32 General appearance: Present: no acute distress, well-nourished Results - Labs CBC & Chem 7: 09/23/21 09:27 09/23/21 09:27 Labs: Laboratory Last Values WBC 10.6 K/mm3 (4.5-11.0) 09/23/21 09: RBC 4.24 M/mm3 (3.65-5.03) 09/23/21 09: Hgb 13.8 gm/dl (10.1-14.3) 09/23/21 09: Hct 38.9 % (30.3-42.9) 09/23/21 09: MCV 92 fl (79-97) 09/23/21 09: MCH 33 pg (28-32) H 09/23/21 09: MCHC 36 % (30-34) H 09/23/21 09:27 RDW 13.9 % (13.2-15.2) 09/23/21 09:27 Plt Count 213 K/mm3 (140-440) 09/23/21 09:27 Lymph % (Auto) 22.9 % (13.4-35.0) 09/23/21 09:27 [place] % (Auto) 8.9 % (0.0-7.3) H 09/23/21 09: Eos % (Auto) 0.6 % (0.0-4.3) 09/23/21 09:27 Baso % (Auto) 1.4 % (0.0-1.8) 09/23/21 09:27 Lymph # (Auto) 2.4 K/mm3 (1.2-5.4) 09/23/21 09:27 [place] # (Auto) 0.9 K/mm3 (0.0-0.8) H 09/23/21 09:27 Eos # (Auto) 0.1 K/mm3 (0.0-0.4) 09/23/21 09:27 Baso # (Auto) 0.1 K/mm3 (0.0-0.1) 09/23/21 09: Seg Neutrophils % 66.2 % (40.0-70.0) 09/23/21 09: Seg Neutrophils # 7.1 K/mm3 (1.8-7.7) 09/23/21 09: Sodium 131 mmol/L (137-145) L 09/23/21 09: Potassium 4.2 mmol/L (3.6-5.0) 09/23/21: Chloride 93.4 mmol/L (98-107) L 09/23/21 09: Carbon Dioxide 23 mmol/L (22-30) 09/23/21: Anion Gap 19 mmol/L 09/23/21: BUN 13 mg/dL (7-17) 09/23/21 09: Creatinine 0.8 mg/dL (0.6-1.2) 09/23/21 09: Estimated GFR > 60 ml/min 09/23/21: BUN/Creatinine Ratio 16 % 09/23/21: Glucose 172 mg/dL (65-100) H 09/23/21 09: Hemoglobin A1c 5.2 % (4-6) 09/23/21: Calcium 9.7 mg/dL (8.4-10.2) 09/23/21: Total Bilirubin 0.70 mg/dL (0.1-1.2) 09/23/21: AST 61 units/L (5-40) H 09/23/21: ALT 48 units/L (7-56) 09/23/21: Alkaline Phosphatase 69 units/L (35-129) 09/23/21 09: Total Protein 8.2 g/dL (6.3-8.2) 09/23/21: Albumin 4.5 g/dL (3.9-5) 09/23/21: Albumin/Globulin Ratio 1.2 % 09/23/21: Triglycerides 66 mg/dL (2-149) 09/23/21: Cholesterol 142 mg/dL (50-199) 09/23/21 09: LDL Cholesterol Direct 77 mg/dL (50-130) 09/23/21 09: HDL Cholesterol 52 mg/dL (40-59) 09/23/21 09:27 Cholesterol/HDL Ratio 2.73 % 09/23/21 09:27 TSH 1.940 mlU/mL (0.270-4.200) 09/23/21 09:27 Ruiz/IV: Voiding Method Toilet Active Medications - Current Medications Current Medications: Generic Name Dose Route Start Last Admin Trade Name Freq PRN Reason Stop Dose Admin Acetaminophen 650 mg 09/24/21 13:18 Acetaminophen 325 Mg Tab PO Q6H PRN Headache Alprazolam 2 mg 09/23/21 11:00 09/26/21 09:30 Alprazolam 1 Mg Tab PO 2 mg BID AMARIS Administration Amlodipine Besylate 5 mg 09/25/21 10:00 09/26/21 09:34 Amlodipine 5 Mg Tab PO 5 mg QDAY AMARIS Administration Aripiprazole 15 mg 09/26/21 10:00 09/26/21 09:34 Aripiprazole 15 Mg Tab PO 15 mg QDAY AMARIS Administration Levetiracetam 500 mg 09/23/21 11:00 09/26/21 09:34 Levetiracetam 500 Mg Tab PO 500 mg BID AMARIS Administration Melatonin 5 mg 09/23/21 10:44 09/24/21 20:56 Melatonin 5 Mg Tab PO 5 mg HS PRN Administration Insomnia Pantoprazole Sodium 40 mg 09/23/21 11:00 09/26/21 09:34 Pantoprazole 40 Mg Tab PO 40 mg DAILY AMARIS Administration Polyethylene Glycol 17 gm 09/24/21 15:00 09/26/21 09:34 Polyethylene Glycol 3350 17 Gm Powder PO 17 gm QDAY AMARIS Administration Trazodone HCl 50 mg 09/24/21 22:00 09/25/21 21:10 Trazodone 50 Mg Tab PO 50 mg QHS AMARIS Administration
[2021-09-26] MEDS: traZODone 50 MG TAB PO SCH (21:20)
[2021-09-27] MEDS: PANTOPRAZOLE 40 MG TAB PO SCH (10:25)
[2021-09-27] MEDS: levETIRAcetam 500 MG TAB PO SCH (10:25)
[2021-09-27] MEDS: ALPRAZolam 1 MG TAB PO SCH (10:25)
[2021-09-27] MEDS: amLODIPine 5 MG TAB PO SCH (10:26)
[2021-09-27] MEDS: POLYETHYLENE GLYCOL 3350 17 GM POWDER PO SCH (10:27)
[2021-09-27] MEDS: ARIPiprazole 15 MG TAB PO SCH (10:27)
[2021-09-27 10:29] VITALS: BP 141/109
--- NOTE | 2021-09-27 12:57 | Discharge Summary ---
Providers - Providers Date of Admission: 09/22/21 23:54 Date of discharge: 09/27/21 Attending physician: NIKKIE ARCHER MD 09/22/21 16:17 Consult to Physician [CONS] Routine Comment: Consulting Provider: SHIRLEY GONZALEZ Physician Instructions: Reason For Exam: manage medical conditions Primary care physician: DRAW [employer]ESS OPERATOR Hospitalization Reason for admission: psychosis Admitting Diagnosis: F31.9 - BIPOLAR DISORDER, UNSPECIFIED Condition: Stable Hospital course: The patient was provided inpatient psychiatric treatment with safe and supportive care, medication adjustment, adverse effect monitoring, medical evaluations, medical treatments, assessment and psycho-education. The patient's mood, cognition, behavior, moral support are improved and stabilized. St the time of discharge, the patient had no endangering behavior and no debilitating adverse effects. The patient agreed on potential consequences of no treatment and gave informed consent. 09/27 The patient was seen today. She is smiling and pleasant. She states she feels better. She is a little confused. She denies SI/HI. She also denies hallucinations. She says "I did yesterday but not today." Disposition: 01 HOME / SELF CARE / HOMELESS Time spent for discharge: 35 Allergies/Adverse Reactions: Allergies pollen extracts Allergy (Verified 09/23/21 05:22) Unknown Vital Signs: Last Vital Signs Temp 98.7 F 09/26/21 19:33 Pulse 115 H 09/27/21 10:26 Resp 18 09/26/21 19:33 BP 141/109 09/27/21 10:26 Pulse Ox 96 09/26/21 19:33 Last Lab: Laboratory Last Values WBC 10.6 K/mm3 (4.5-11.0) 09/23/21 09:27 RBC 4.24 M/mm3 (3.65-5.03) 09/23/21 09:27 Hgb 13.8 gm/dl (10.1-14.3) 09/23/21 09:27 Hct 38.9 % (30.3-42.9) 09/23/21 09:27 MCV 92 fl (79-97) 09/23/21 09:27 MCH 33 pg (28-32) H 09/23/21 09:27 MCHC 36 % (30-34) H 09/23/21 09:27 RDW 13.9 % (13.2-15.2) 09/23/21 09:27 Plt Count 213 K/mm3 (140-440) 09/23/21 09:27 Lymph % (Auto) 22.9 % (13.4-35.0) 09/23/21 09:27 Grimes % (Auto) 8.9 % (0.0-7.3) H 09/23/21 09:27 Eos % (Auto) 0.6 % (0.0-4.3) 09/23/21 09: Baso % (Auto) 1.4 % (0.0-1.8) 09/23/21 09:27 Lymph # (Auto) 2.4 K/mm3 (1.2-5.4) 09/23/21 09: Grimes # (Auto) 0.9 K/mm3 (0.0-0.8) H 09/23/21 09:27 Eos # (Auto) 0.1 K/mm3 (0.0-0.4) 09/23/21 09: Baso # (Auto) 0.1 K/mm3 (0.0-0.1) 09/23/21 09:27 Seg Neutrophils % 66.2 % (40.0-70.0) 09/23/21 09: Seg Neutrophils # 7.1 K/mm3 (1.8-7.7) 09/23/21 09:27 Sodium 131 mmol/L (137-145) L 09/23/21 09:27 Potassium 4.2 mmol/L (3.6-5.0) 09/23/21 09: Chloride 93.4 mmol/L (98-107) L 09/23/21 09: Carbon Dioxide 23 mmol/L (22-30) 09/23/21 09: Anion Gap 19 mmol/L 09/23/21 09:27 BUN 13 mg/dL (7-17) 09/23/21 09: Creatinine 0.8 mg/dL (0.6-1.2) 09/23/21 09:27 Estimated GFR > 60 ml/min 09/23/21 09: BUN/Creatinine Ratio 16 % 09/23/21 09: Glucose 172 mg/dL (65-100) H 09/23/21 09: Hemoglobin A1c 5.2 % (4-6) 09/23/21 09:27 Calcium 9.7 mg/dL (8.4-10.2) 09/23/21 09:27 Total Bilirubin 0.70 mg/dL (0.1-1.2) 09/23/21 09:27 AST 61 units/L (5-40) H 09/23/21 09:27 ALT 48 units/L (7-56) 09/23/21 09:27 Alkaline Phosphatase 69 units/L (35-129) 09/23/21 09:27 Total Protein 8.2 g/dL (6.3-8.2) 09/23/21 09:27 Albumin 4.5 g/dL (3.9-5) 09/23/21 09:27 Albumin/Globulin Ratio 1.2 % 09/23/21 09:27 Triglycerides 66 mg/dL (2-149) 09/23/21 09:27 Cholesterol 142 mg/dL (50-199) 09/23/21 09:27 LDL Cholesterol Direct 77 mg/dL (50-130) 09/23/21 09:27 HDL Cholesterol 52 mg/dL (40-59) 09/23/21 09:27 Cholesterol/HDL Ratio 2.73 % 09/23/21 09:27 TSH 1.940 mlU/mL (0.270-4.200) 09/23/21 09:27 Core Measure Documentation - Palliative Care Palliative Care/ Comfort Measures: Not Applicable - Core Measures Any of the following diagnoses?: none Exam - Constitutional Vitals: Temp Pulse Resp BP Pulse Ox 98.7 F 115 H 18 141/109 96 09/26/21 19:33 09/27/21 10:26 09/26/21 19:33 09/27/21 10:26 09/26/21 19:33 General appearance: Present: no acute distress - EENT Eyes: Present: PERRL, EOM intact ENT: hearing intact, clear oral mucosa - Neck Neck: Present: supple, normal ROM - Respiratory Respiratory effort: normal Plan Weight Bearing Status: Weight Bear as Tolerated Care Plan Goals: manage good and stable mental health Plan of Treatment: The patient should be compliant with medications, not to use drugs, and not to drink alcohol. The patient understands that if suicidal ideas, homicidal ideas or any endangering feeling arise, the patient should seek assistance including, but not limited to crisis hotline, and emergency room. Assessment: Bipolar Disoder Follow up with: PRIMARY CARE, [Primary Care Provider] - 7 Days Prescriptions: traZODone [Desyrel] 50 mg PO QHS #30 tablet ARIPiprazole [Abilify TAB] 15 mg PO QDAY #30 tablet Melatonin [Melatonin 5MG TAB] 5 mg PO HS PRN #30 tablet PRN Reason: Insomnia
== END 2021-09-27 19:55 | disposition home or self-care (01) | DRG 885 ==
LOC: UNDOADMIN 13:52 → 3A 13:52 → 5A 23:54
PROVIDERS: ADMIT Psychiatry & Neurology Psychiatry; ATTEND Psychiatry & Neurology Psychiatry
DX: F31.9 Bipolar disorder, unspecified (principal); N39.0 Urinary tract infection, site not specified; F41.9 Anxiety disorder, unspecified; I10 Essential (primary) hypertension; K21.9 Gastro-esophageal reflux disease without esophagitis; M19.90 Unspecified osteoarthritis, unspecified site; G44.209 Tension-type headache, unspecified, not intractable; K59.00 Constipation, unspecified; R73.9 Hyperglycemia, unspecified; Z80.9 Family history of malignant neoplasm, unspecified; Z20.822 Contact with and (suspected) exposure to COVID-19
CPT/HCPCS: 36415; 80053; 80061; 83036; 84443; 85025; G0378